=== PATIENT | female | born 1995 | race Caucasian/White ===

== ENCOUNTER 2020-12-14 20:48 | Emergency (ER) | payer OTHER, SELFPAY ==
[2020-12-14 21:03] VITALS: BP 107/62; PULSE 102; RESP 18; TEMP 36.8; O2SAT 100; BMI 23.5
[2020-12-14] MEDS: Acetaminophen 325 MG TABLET 975 MG PO (22:27)
[2020-12-14] MEDS: Ibuprofen 400 MG TABLET PO (22:27)
[2020-12-14] MEDS: Lidocaine HCl 2%/Epi 1:100,000 20 ML VIAL INFILTRATI (22:30)
--- NOTE | 2020-12-14 23:11 | ED.GENADULT ---
HPI - General Adult General Chief complaint: Wound/Laceration Stated complaint: abscess Time Seen by Provider: 12/14/20 21:06 Source: patient Mode of arrival: ambulatory History of Present Illness HPI narrative: 25-year-old female who presents with worsening folliculitis/carbuncle at the left axilla and then noted a worsening area on the left groin crease without associated fever, chills. Patient states that she has had these intermittently throughout her life. Related Data Previous Rx's Medication Instructions Recorded cephalexin 500 mg capsule 500 mg PO Q12H 7 Days #14 cap 12/14/20 doxycycline hyclate 100 mg capsule 100 mg PO BID 7 Days #14 cap 12/14/20 Allergies Allergy/AdvReac Type Severity Reaction Status Date / Time No Known Allergies Allergy Unverified 10/31/19 19:17 [No Known Allergies*] Review of Systems Review of Systems: Pertinent positives and negatives as stated in HPI 10 point review of symptoms is otherwise negative. PMFSH Past Medical History Source: nursing notes reviewed Social History Social History Advance Directives: No Physical Exam Vital Signs: Vital Signs: Last Vital Signs Temp 98.2 F 12/14/20 21:03 Pulse 102 H 12/14/20 21:03 Resp 18 12/14/20 21:03 BP 107/62 12/14/20 21:03 Pulse Ox 100 12/14/20 21:03 Body Mass Index 23.5 VITAL SIGNS: Reviewed. GENERAL: Well developed, well nourished, in no acute distress. HEAD: Normocephalic/atraumatic EYES: PERRLA, EOMI OROPHARYNX: no oral lesions noted, posterior pharynx clear NECK: Supple, no adenopathy LUNGS: Normal breath sounds. No adventitious sounds or accessory muscle use. SpO2<100> CARDIOVASCULAR: Regular rate and rhythm without noted murmurs ABDOMEN: Soft, non-tender, non-distended with bowel sounds. LEFT AXILLA: There is an abscess to the medial aspect of the axilla with mild overlying erythema and fluctuance noted without induration. LEFT GROIN: There is in abscess along the left groin with overlying erythema and fluctuance. SKIN: Inspection of the skin reveals no rashes NEUROLOGIC: Alert and oriented x 4. Course Course Course Narrative: 25-year-old female with history and clinical presentation suggestive of possible hidradenitis. Both abscesses were successfully drained for copious amounts of purulence, foul smelling. Patient states she feels much better and will be discharged with antibiotics and referral to see General surgery. Procedures Abscess I/D Site: other (Axilla and groin crease) Side (if applicable): left Local Anesthetic: lidocaine 2% and with epi Amount of anesthesia used (mL): 10 Technique: incised with blade and ultrasound guided Amount of fluid expressed (mL): 50 Sent for culture/gram staining?: No Irrigation: Yes Packing used?: none Complications: pain Discharge Plan Discharge Clinical Impression: Abscess, Hidradenitis Patient Disposition: Home, Self-Care Instructions: Abscess (ED), Abscess Follow-up (ED), Abscess Incision and Drainage (DC), Hidradenitis Suppurativa (ED), Warm Compress or Soak (ED) Additional Instructions: Continue to use warm/wet compresses to both sites. You have been started on antibiotics and will need to complete the entire course. You have been provided referral for further outpatient evaluation as you have suspected hidradenitis. Return to the ER for acute worsening of symptoms. Prescriptions: New cephalexin 500 mg capsule 500 mg PO Q12H 7 Days Qty: 14 RF: 0 doxycycline hyclate 100 mg capsule 100 mg PO BID 7 Days Qty: 14 RF: 0 Referrals: Magdaleno Bonilla MD [Physician] - 2 days (25-year-old female with suspected hidradenitis, would appreciate re-evaluation and further outpatient management.)
[2020-12-14] MEDS: cephALEXin 500 MG CAPSULE PO (23:18)
[2020-12-14 23:35] VITALS: BP 104/70; PULSE 78; RESP 16; TEMP 36.8; O2SAT 99
== END 2020-12-14 23:44 | disposition home or self-care (01) ==
PROVIDERS: Emergency Provider Student in an Organized Health Care Education/Training Program
DX: L02.412 Cutaneous abscess of left axilla (principal); L02.214 Cutaneous abscess of groin; L73.2 Hidradenitis suppurativa
CPT/HCPCS: 10061; 99284

== ENCOUNTER 2021-06-25 13:43 | Emergency (ER) | payer OTHER, SELFPAY ==
--- NOTE | ~2021-06-25 | XR_ITS ---
EXAMINATION: XR TOES, LEFT CLINICAL INFORMATION: Pain and swelling COMPARISON: None TECHNIQUE: 3 views of the left toes were obtained. FINDINGS: There are no fractures or dislocations. No joint effusion is identified. No bone, joint or soft tissue abnormality is demonstrated. XR/XR toe LT min 2V IMPRESSION: Unremarkable examination.
[2021-06-25 13:48] VITALS: BP 99/61; PULSE 76; RESP 18; TEMP 36.6; O2SAT 98; BMI 25.7
--- NOTE | 2021-06-25 15:43 | ED.LOWEXIN ---
HPI - Extremity Injury (Lower) General Chief Complaint: Extremity Injury, Lower Stated Complaint: l foot inj Time Seen by Provider: 06/25/21 15:43 Source: patient Mode of arrival: wheelchair Limitations: no limitations History of Present Illness HPI Narrative: 25-year-old female presents to the ER with left 5th toe and foot pain and swelling after she fell while running barefoot with her kids yesterday. She had immediate pain and difficulty ambulating. This morning she woke up with increased bruising and and swelling, persistent pain and inability walk on the foot. She denies any numbness or tingling. complaint: foot injury Onset (ago): day(s) (1) Injury: Left: toes Type of Injury: blunt Place: home Severity: moderate Severity scale (1-10): 5 Relieving factors: immobilization and rest Exacerbating factors: weight bearing, movement and palpation Context: fall, direct blow and running Associated symptoms: swelling and able to partially bear weight Other symptoms: none Treatments prior to arrival: cold therapy Related Data Previous Rx's Medication Instructions Recorded cephalexin 500 mg capsule 500 mg PO Q12H 7 Days #14 cap 12/14/20 doxycycline hyclate 100 mg capsule 100 mg PO BID 7 Days #14 cap 12/14/20 Allergies Allergy/AdvReac Type Severity Reaction Status Date / Time No Known Allergies Allergy Unverified 10/31/19 19:17 [No Known Allergies*] Review of Systems Review of Systems: Constitutional: No Fever, No Chills Cardiovascular: No Chest Pain, No SOB Gastrointestinal: No Nausea, No Vomiting Musculoskeletal: + joint pain, No Myalgias Skin: No Skin Lesions, No rash Neuro: No Weakness, No Numbness Heme/Lymph: + Bruising, No Lymphadenopathy Endocrine: No Polyuria, No Polydipsia PMFSH Social History Social History Advance Directives: No Advance Directives Information Provided: No Physical Exam Vital Signs: Vital Signs: Last Vital Signs Temp 98 F 06/25/21 13:48 Pulse 76 06/25/21 13:48 Resp 18 06/25/21 13:48 BP 99/61 06/25/21 13:48 Pulse Ox 98 06/25/21 13:48 BMI result Body Mass Index 25.7 Appearance: Alert. Oriented X3. No acute distress. HEENT: normal inspection CVS: Normal heart rate and rhythm. Pulses normal. Respiratory: No respiratory distress. Skin: Skin warm and dry. Normal skin color. Normal skin turgor. No rashes. Extremities: Left foot with moderate area of swelling and ecchymosis over the 4th and 5th distal metatarsals and left 5th digit. Tender to palpation with limited range of motion of the 5th digit. Warm and well perfused. Neurovascularly intact distally Left ankle is normal inspection, range of motion. Neuro: Oriented X 3. Gait not tested due to pain Course Course Course Narrative: 25-year-old female presents to the ER with left 5th great toe pain and metatarsal pain after she fell while running barefoot yesterday. Unclear if she kicked in object or not. She has pain with ambulation and tenderness on examination along with ecchymosis and swelling. She is not diabetic. Her x-ray today did not show any acute bony abnormalities or dislocations. Most likely contusion and mild hematoma. Will place Neftaly wrap for compression and support, discussed RICE therapy. Crutches and post op shoe provided. Stable for d/c. Discharge Plan Discharge Clinical Impression: Contusion of foot Patient Disposition: Home, Self-Care Instructions: Foot Contusion (ED) Additional Instructions: Your x-ray today was normal. Rest your foot and elevate your it when possible. Recommend NEFTALY wrap for support and compression. Use ice several times per day for the next 48 hours. You may bear weight as tolerated. If pain is too severe, use crutches until better. Take Motrin and/or Tylenol as needed for pain. Follow up with your doctor as needed. Prescriptions: No Action cephalexin 500 mg capsule 500 mg PO Q12H 7 Days Qty: 14 0RF doxycycline hyclate 100 mg capsule 100 mg PO BID 7 Days Qty: 14 0RF
== END 2021-06-25 17:41 | disposition home or self-care (01) ==
PROVIDERS: Emergency Provider Emergency Medicine
DX: S90.32XA Contusion of left foot, initial encounter (principal); W18.30XA Fall on same level, unspecified, initial encounter; Y93.02 Activity, running; Y92.009 Unspecified place in unspecified non-institutional (private) residence as the place of occurrence of the external cause; Y99.9 Unspecified external cause status
CPT/HCPCS: 73660; 99283

== ENCOUNTER 2021-09-29 14:42 | Emergency (ER) | payer OTHER, SELFPAY ==
[2021-09-29 14:58] VITALS: BP 117/77; BP 93/72; PULSE 102; PULSE 104; RESP 20; TEMP 36.7; O2SAT 96; O2SAT 97; BMI 28.3
[2021-09-29 15:26] LABS: Basophils Percent Auto 0.2 % (0-2); Eosinophils Percent Auto 0.2 % (0-4); Hemoglobin 11.6 g/dl (12.0-16.0); Imm Gran Abs Auto 0.01 X10*3/uL (0.00-0.03); Imm Gran Pct Auto 0.2 % (0.0-0.4); Lymphocytes Absolute Auto 0.4 X10*3/uL (1.2-4.9); Lymphocytes Percent Auto 7.9 % (20-40); MANUAL DIFF FLAG SCAN; Mean Corpuscular HGB Conc 33.1 g/dl (31.0-35.0); Mean Corpuscular Hemoglobin 29.5 pg (27.0-33.0); Mean Corpuscular Volume 89.1 fL (80.0-98.0); Mean Platelet Volume 9.9 fL (9.4-12.3); Monocytes Absolute Auto 1.3 X10*3/uL (0.1-1.2); Monocytes Percent Auto 24.5 % (2-11); Neutrophils Absolute Auto 3.5 x10*3/uL (2.0-8.3); Platelet Count 247 X10*3/uL (160-400); Red Blood Count 3.93 X10*6/uL (4.20-5.50); Red Cell Distribution Width 13.2 % (11.0-16.0); SCAN SMEAR FLAG 1; White Blood Count 5.2 X10*3/uL (4.8-10.8)
[2021-09-29 15:40] LABS: COVID-19 Test Positive (Negative); IDNOW Serial# 16C4AD1C
[2021-09-29 15:43] LABS: Anion Gap 14 (12-20); Blood Urea Nitrogen 4 mg/dL (9-16); Calcium 8.8 mg/dL (8.4-10.2); Carbon Dioxide 22 mmol/L (22-29); Chloride 106 mmol/L (96-108); Creatinine Clr Calc Pharmacy 139.7; Estimated Glomerular Filt Rate > 60; Glucose Random 96 mg/dL (60-115); Potassium 3.6 mmol/L (3.3-5.1); Sodium 138 mmol/L (135-145)
[2021-09-29 15:49] LABS: SLIDE REVIEW VERIFIED
--- NOTE | 2021-09-29 19:08 | ED.HA ---
HPI - Headache General Chief Complaint: Headache Stated Complaint: MIGRAINE Time Seen by Provider: 09/29/21 18:58 Source: patient Mode of arrival: ambulatory Limitations: no limitations History of Present Illness HPI Narrative: 25-year-old female who is currently 8 weeks presents to the ER for evaluation of a migraine that started about 24 hours ago. She has a history of migraines and took some Tylenol at home without any improvement in her headache. She also reports that she has nausea, dry cough, diffuse body aches and some chills. She took an at home COVID test and was negative. She denies any known sick contacts or COVID exposures. MD elicited complaint: migraine Related Data Previous Rx's Medication Instructions Recorded cephalexin 500 mg capsule 500 mg PO Q12H 7 days #14 caps 12/14/20 doxycycline hyclate 100 mg capsule 100 mg PO BID 7 days #14 caps 12/14/20 Allergies Allergy/AdvReac Type Severity Reaction Status Date / Time No Known Allergies Allergy Verified 09/29/21 14:58 [No Known Allergies*] Physical Exam Vital Signs: Vital Signs: Last Vital Signs Temp 98.1 F 09/29/21 14:58 Pulse 102 H 09/29/21 14:58 Resp 20 09/29/21 14:58 BP 93/72 09/29/21 14:58 Pulse Ox 97 09/29/21 14:58 BMI result Body Mass Index 28.3 MDM - Headache Lab Data Result diagrams: 09/29/21 15:18 09/29/21 15:18 Labs: Lab Results 09/29/21 09/29/21 09/29/21 Range/Units 15:18 15:18 15:21 WBC 5.2 (4.8-10.8) X10*3/uL RBC 3.93 L (4.20-5.50) X10*6/uL Hgb 11.6 L (12.0-16.0) g/dl Hct 35.0 L (37.0-47.0) % MCV 89.1 (80.0-98.0) fL MCH 29.5 (27.0-33.0) pg MCHC 33.1 (31.0-35.0) g/dl RDW 13.2 (11.0-16.0) % Plt Count 247 (160-400) X10*3/uL MPV 9.9 (9.4-12.3) fL Immature Gran % (Auto) 0.2 (0.0-0.4) % Neut % (Auto) 67.0 (45-73) % Lymph % (Auto) 7.9 L (20-40) % Dickson % (Auto) 24.5 H (2-11) % Eos % (Auto) 0.2 (0-4) % Baso % (Auto) 0.2 (0-2) % Lymph # (Auto) 0.4 L (1.2-4.9) X10*3/uL Dickson # (Auto) 1.3 H (0.1-1.2) X10*3/uL Eos # (Auto) 0.0 (0.0-0.4) X10*3/uL Baso # (Auto) 0.0 (0.0-0.2) X10*3/uL Abs Immat Gran (auto) 0.01 (0.00-0.03) X10*3/uL Absolute Neuts (auto) 3.5 (2.0-8.3) x10*3/uL Absolute Nucleated RBC 0.000 (0.0-0.012) X10*3/uL Nucleated RBC % (auto) 0.0 (0.0-0.2) /100WBC Smear Tech's Comments VERIFIED Sodium 138 (135-145) mmol/L Potassium 3.6 (3.3-5.1) mmol/L Chloride 106 (96-108) mmol/L Carbon Dioxide 22 (22-29) mmol/L Anion Gap 14 (12-20) BUN 4 L (9-16) mg/dL Creatinine 0.61 (0.5-1.4) mg/dL Estim Creat Clear Calc 139.7 Estimated GFR > 60 Random Glucose 96 (60-115) mg/dL Calcium 8.8 (8.4-10.2) mg/dL COVID-19 (SARI) Positive A (Negative) COVID-19 Clin Com See Note Discharge Plan Discharge Prescriptions: No Action cephalexin 500 mg capsule 500 mg PO Q12H 7 Days Qty: 14 0RF doxycycline hyclate 100 mg capsule 100 mg PO BID 7 Days Qty: 14 0RF
== END 2021-09-29 19:08 | disposition left against medical advice (07) ==
LOC: HO.ED 20:00
PROVIDERS: Emergency Medicine; Emergency Provider Emergency Medicine
DX: O98.511 Other viral diseases complicating pregnancy, first trimester (principal); U07.1 COVID-19; Z3A.08 8 weeks gestation of pregnancy
CPT/HCPCS: 36415; 80048; 85025; 87635; 99281; 99283